=== PATIENT | female | born 1990 | race Caucasian/White ===

== ENCOUNTER 2018-01-30 08:04 | Emergency (ER) | payer BC ==
[~2018-01-30] VITALS: Ht 175.3 cm; Wt 118.2 kg
[~2018-01-30 08:04] MED LIST: YAZ 28 3 MG-0.01 TAB PO
[2018-01-30 08:05] VITALS: TEMP 97.8
[2018-01-30] MEDS ORDERED: DESYREL 50MG50 MG PO (08:14)
[2018-01-30] MEDS ORDERED: CELEXA40 MG PO (08:14)
[2018-01-30] MEDS ORDERED: APRI 0.15 MG-0.1 TAB PO (08:14)
[2018-01-30] MEDS ORDERED: KLONOPIN 0.5MG0.5 MG PO (08:15)
[2018-01-30] MEDS ORDERED: ZOFRAN ODT4 MG PO (09:08)
[2018-01-30 09:55] VITALS: BP 128/82; PULSE 74
== END 2018-01-30 09:55 | disposition home or self-care (01) ==
LOC: COL.ER 08:04
DX: S01.01XA Laceration without foreign body of scalp, initial encounter (principal); S00.93XA Contusion of unspecified part of head, initial encounter; W17.89XA Other fall from one level to another, initial encounter; Y93.31 Activity, mountain climbing, rock climbing and wall climbing

== ENCOUNTER 2019-06-23 08:31 | Emergency (ER) | payer SELFPAY ==
[~2019-06-23] VITALS: Ht 177.8 cm; Wt 122.7 kg
[~2019-06-23 08:31] MED LIST changes: +APRI 0.15 MG-0.1 TAB PO; +CELEXA40 MG PO; +DESYREL 50MG50 MG PO; +KLONOPIN 0.5MG0.5 MG PO; +ZOFRAN ODT4 MG PO
[2019-06-23 08:35] VITALS: BP 160/94; PULSE 94; TEMP 98.6
[2019-06-23] MEDS ORDERED: STERIODS (14:06)
[2019-06-23] MEDS ORDERED: NASAL SPRAY (14:07)
[2019-06-23] MEDS ORDERED: SUDAFED30 MG PO (14:07)
== END 2019-06-23 09:44 | disposition home or self-care (01) ==
LOC: COL.ER 08:31
DX: T74.21XA Adult sexual abuse, confirmed, initial encounter (principal)

== ENCOUNTER 2019-06-23 09:12 | Outpatient (CLI) | payer SELFPAY ==
[2019-06-23] MEDS ORDERED: STERIODS (14:06)
[2019-06-23] MEDS ORDERED: SUDAFED30 MG PO (14:07)
[2019-06-23] MEDS ORDERED: NASAL SPRAY (14:07)
== END 2019-06-23 12:35 | disposition home or self-care (01) ==
LOC: LDRO 09:12
DX: Z04.41 Encounter for examination and observation following alleged adult rape (principal)
CPT/HCPCS: J0696

== ENCOUNTER 2022-01-16 15:18 | Outpatient (RCR) | payer OTHER ==
[~2022-01-16 15:18] MED LIST changes: +NASAL SPRAY; +STERIODS; +SUDAFED30 MG PO
== END 2022-01-18 ==
LOC: WSOH
DX: S90.31XA Contusion of right foot, initial encounter (principal); Z98.890 Other specified postprocedural states; Y99.0 Civilian activity done for income or pay